=== PATIENT | male | born 1975 | race Caucasian/White ===

== ENCOUNTER → 2020-09-15 14:27 | Outpatient (CLI) | payer BC, SELFPAY ==
--- NOTE | ~2020-09-15 | XR_ITS ---
EXAMINATION: XR chest 2V 09/15/2020 15:03 INDICATION: Cough and congestion. PROCEDURE: 2 view chest COMPARISON: 10/13/2019 FINDINGS: The lungs are clear. The cardiomediastinal silhouette is within normal limits. There are no pleural effusions. There is no pneumothorax suspected. IMPRESSION: 1: NO ACUTE CARDIOPULMONARY DISEASE. Reviewed, dictated and finalized at location A.
--- NOTE | ~2020-09-15 | CT_ITS ---
EXAMINATION: CT abdomen pelvis wo con DATE: 09/15/2020 14:45 INDICATION: Left flank pain. TECHNIQUE: Computed tomography (CT) of the abdomen and pelvis was performed without intravenous contr ast. The dose-length product was 663.22 mGy-cm. Automated exposure control and iterative reconstructi on technique were employed. COMPARISON: None. FINDINGS: Lung bases are unremarkable. Heart size normal. No significant pleural or pericardial effus ion. No significant vascular abnormality. No lymphadenopathy. No renal/ureteral stones. No hydronephrosis. There is a 1.7 cm exophytic left renal cyst. There are g allstones. Nonobstructive bowel gas pattern. No free air or free fluid. Nonspecific stranding present around both kidneys, likely chronic. No abnormal pelvic masses or fluid collections. The liver, spleen, pancreas, adrenal glands and right kidney are unremarkable. No acute osseous abnor mality. IMPRESSION: 1. No acute abdominal abnormality. 2: Cholelithiasis. Reviewed, dictated and finalized at location A.
== END ==
PROVIDERS: PCP Internal Medicine; Visit Provider Internal Medicine
DX: R10.9 Unspecified abdominal pain (principal); Z87.442 Personal history of urinary calculi; K80.20 Calculus of gallbladder without cholecystitis without obstruction
CPT/HCPCS: 71046; 74176

== ENCOUNTER 2022-10-08 11:47 | Outpatient (CLI) | payer OTHER, SELFPAY ==
[2022-10-08 12:49] LABS: Influenza Control Valid (Valid)
== END 2022-10-08 11:48 | disposition home or self-care (01) ==
LOC: CHSLAB 11:49
PROVIDERS: PCP Internal Medicine; Visit Provider Internal Medicine
DX: J06.9 Acute upper respiratory infection, unspecified (principal)
CPT/HCPCS: 87804

== ENCOUNTER 2025-02-05 09:13 | Outpatient (CLI) | payer OTHER, SELFPAY ==
--- OUTSIDE RECORDS SUMMARY | 2025-02-05 09:21 | XMS_ITS | Clinical Summary ---
Author Organization [facility] Address [address] [place] [id number] Care Team Providers Care Rehab Office Coordinator Name Role Phone Unavailable Primary Care Provider Unavailabl e Social History Tobacco Use Types Packs/Day Years Used Date Smoking Tobacco: Never Assessed Sex and Gender Information Value Date Recorded Sex Assigned at Not on file Legal Sex Male 4:16 PM CDT Gender Identity Not on file Sexual Orientation Not on file Plan of Treatment Health Maintenance Due Date Last Done Comments Colorectal Cancer Screening Colonoscopy (10 Years) 1975 Annual Physical 1978 Hepatitis C 1993 DTaP, Tdap and Td Vaccines ( 1 - Tdap) 1994 Hepatitis B Vaccines (1 of 3 - 19+ 3-dose series) 1994 COVID-19 Vaccine (2023-2 5 season) 2024 Influenza Adult (#1) 2024 Meningococcal B Vaccine Aged Out No l onger eligible based on patient's age to complete this topic Meningococcal Vaccine Aged Out No any yogi eligible based on patient's age to complete this topic Pneumococcal Vaccine: Pediat rics (0 to 5 Years) and At-Risk Patients (6 to 64 Years) Aged Out No longer eligible b ased on patient's age to complete this topic RSV Immunizations Under 20 Months Aged Out No longer eligible based on patient's age to complete this topic
--- OUTSIDE RECORDS SUMMARY | 2025-02-05 09:21 | XMS_ITS | Encounter Summary ---
Author Organization [facility] Address [address] [place] [id number] Care Team Providers Care Control Valve Mechanic Name Role Phone Unavailable Primary Care Provider Unavailabl e Encounter Details Date Type Department Care Team (Late st Contact Info) Description 04/24/2019 Abstract SFL CONVERSION [address] [place] [address] , Generic Conversion, Social History Tobacco Use Types Packs/Day Years Used Date Smoking Tobacco: Never Assessed Sex and Gender Information Value Date Recorded Sex Assigned at Not on file Legal Sex Male 4:16 PM CDT Gender Identity Not on file Sexual Orientation Not on file documented as of this encounter Plan of Treatment Not on file documented as of this encounter Visit Diagnoses Not on filedocumented in this encounter
[2025-02-05 10:21] LABS: Alanine Aminotransferase 33 U/L (16-63); Albumin Level 4.2 g/dL (3.4-5.0); Alkaline Phosphatase 105 U/L (46-116); Anion Gap 6 mmol/L (4-12); Aspartate Amino Transferase 14 U/L (15-37); Bilirubin,Total 0.7 mg/dL (0.00-1.00); Blood Urea Nitrogen 18 mg/dL (7-18); Calcium 9.4 mg/dL (8.5-10.1); Carbon Dioxide 31 mmol/L (21-32); Chloride 104 mmol/L (98-108); Cholesterol 208 mg/dL (0-200); Estimated Glomerular Filt Rate > 60; Glucose 105 mg/dL (70-99); HDL Direct 41 mg/dL (40-60); LDL Cholesterol Calculated 142 mg/dL (<130); Osmolality Calculated 293 mOsm/kg (285-295); Sodium 141 mmol/L (136-145); Total Protein 7.4 g/dL (6.4-8.2); Triglycerides 126 mg/dL (0-150)
== END 2025-02-05 09:14 | disposition home or self-care (01) ==
PROVIDERS: PCP Internal Medicine; Visit Provider Internal Medicine
DX: I10 Essential (primary) hypertension (principal); E11.69 Type 2 diabetes mellitus with other specified complication; E78.5 Hyperlipidemia, unspecified
CPT/HCPCS: 36415; 80053; 80061; 83036

== ENCOUNTER 2025-10-29 08:50 | Outpatient (CLI) | payer OTHER, SELFPAY ==
--- OUTSIDE RECORDS SUMMARY | 2025-10-29 08:55 | XMS_ITS | Clinical Summary ---
Author Organization [facility] Address [address] [place] [id number] Care Team Providers Care Signals Intelligence Analyst Name Role Phone Unavailable Primary Care Provider [...] of 3 - 19+ 3-dose series) 1994 Pneumococcal Vaccine: 50+ Ye ars (1 of 1 - PCV) 2025 Zoster Vaccines (1 of 2) 2025 COVID-19 Vaccine (1 - 2024-2 6 season) 2025 Influenza Adult (#1) 2025 Hepatitis A Vaccines Aged Out No long er eligible based on patient's age to complete this topic Meningococcal B Vaccine Aged Out No l onger eligible based on patient's age to complete this topic Meningococcal Vaccine Aged Out No any yogi eligible based on patient's age to complete this topic RSV Immunizations Under 20 Months Aged Out No longer eligible based on patient's age to complete this topic
--- OUTSIDE RECORDS SUMMARY | 2025-10-29 08:55 | XMS_ITS | Encounter Summary ---
Author Organization [facility] Address [address] [place] [address] Care Team Providers Care Rental Sales Agent Name Role Phone Unavailable Primary Care Provider Unavailabl e Encounter Details Date Type Department Care Team (Late st Contact Info) Description 04/24/2019 Abstract SFL CONVERSION [address] [place] [address] , Generic Conversion, Social History Tobacco Use [...]
[2025-10-29 09:10] LABS: Hematocrit 44.7 % (40.0-54.0); Hemoglobin 15.0 g/dL (14.0-18.0); Mean Corpuscular HGB Conc 33.6 g/dL (32-36); Mean Corpuscular Hemoglobin 31.1 pg (27.0-31.0); Mean Corpuscular Volume 92.5 fL (78.0-102.0); Platelet Count Result 279 K/mm3 (150-420); Red Blood Count 4.83 M/mm3 (4.70-6.10); White Blood Count 9.8 K/mm3 (4.8-10.8)
[2025-10-29 09:14] LABS: Add Urine Microscopic? NO; Appearance Urine Clear (Clear); Glucose Urine UA Negative (Negative); Leukocyte Esterase Ur Negative (Negative); Nitrate Urine Negative (Negative); Specific Grav Ur 1.020 (1.010-1.020)
[2025-10-29 09:25] LABS: Hemoglobin A1C 6.3 % (<5.7)
[2025-10-29 09:34] LABS: MALB Creatinine Ratio 5.2 mg/g (0-30)
[2025-10-29 09:57] LABS: Alanine Aminotransferase 34 U/L (6-50); Albumin Level 4.7 g/dL (3.5-5.1); Alkaline Phosphatase 88 U/L (38-126); Anion Gap 11 mmol/L (4-12); Aspartate Amino Transferase 27 U/L (17-59); Bilirubin,Total 0.6 mg/dL (0.2-1.3); Blood Urea Nitrogen 17 mg/dL (9-20); Calcium 10.0 mg/dL (8.4-10.2); Carbon Dioxide 26 mmol/L (22-30); Chloride 105 mmol/L (98-107); Cholesterol 126 mg/dL (0-200); Estimated Glomerular Filt Rate > 60; Glucose 119 mg/dL (65-110); HDL Direct 43 mg/dL; Osmolality Calculated 296 mOsm/kg (285-295); Potassium 4.6 mmol/L (3.4-5.0); Sodium 142 mmol/L (137-145); Total Protein 7.4 g/dL (6.3-8.2); Triglycerides 119 mg/dL (<150)
[2025-10-29 10:14] LABS: Free T4 Free Thyroxine 1.14 ng/dL (0.78-2.19)
[2025-10-29 10:28] LABS: Thyroid Stimulating Hormone 0.426 uIU/mL (0.465-4.680)
== END 2025-10-29 08:51 | disposition home or self-care (01) ==
LOC: CHSLAB 08:53
PROVIDERS: PCP Internal Medicine; Visit Provider Nurse Practitioner Family
DX: I10 Essential (primary) hypertension (principal); E78.1 Pure hyperglyceridemia
CPT/HCPCS: 36415; 80053; 80061; 81003; 82043; 83036; 84439; 84443; 85027